=== PATIENT | male | born 1990 | race Caucasian/White ===

== ENCOUNTER 2016-08-17 22:19 | Emergency (ER) | payer OTHER ==
[2016-08-18 02:49] LABS: HEMOGLOBIN 14.2 gm/dl (14.0-17.5); RED BLOOD COUNT 4.4 M/UL (4.20-5.50); WHITE BLOOD COUNT 13.4 K/UL (4.5-11.0)
[2016-08-18 03:08] LABS: BUN/CREATININE RATIO 12 (0-10)
== END 2016-08-18 05:10 | disposition home or self-care (01) ==
LOC: ER1 22:19
PROVIDERS: Physician Assistant
DX: L02.414 Cutaneous abscess of left upper limb (principal); L03.114 Cellulitis of left upper limb; Z88.5 Allergy status to narcotic agent
CPT/HCPCS: 10061; 36415; 80053; 85025; 87040; 87070; 87205; 99283; J3370

== ENCOUNTER 2016-08-18 20:58 | Emergency (ER) | payer OTHER | END 2016-08-19 01:47 | disposition home or self-care (01) | LOC: ER1 20:58 | DX: L02.414 Cutaneous abscess of left upper limb (principal); F17.200 Nicotine dependence, unspecified, uncomplicated | CPT/HCPCS: 99283 ==